=== PATIENT | female | born 1985 | race Caucasian/White ===

== ENCOUNTER → 2018-11-23 | Day surgery (SDC) | payer OTHER ==
[~2018-11-23] MED LIST: ALEVE220 MG PO; HYDROCODON-ACE1 EAC7 PO
--- NOTE | ~2018-11-23 | OP ---
[address] [address] OPERATIVE REPORT Name: LO JHAVERI Room: [facility].#: [id number] Admission: 11/23/18 Attend Phys: Teressa Rankin DO Discharge: Date of : 83 Report #: [id number] THIS REPORT FOR: //name// CC: Teressa Calzada On behalf of Dr. Teressa Rankin DO. PREOPERATIVE DIAGNOSES: Chronic cholecystitis with cholelithiasis and dilated common bile duct. POSTOPERATIVE DIAGNOSES: Chronic cholecystitis with cholelithiasis and dilated common bile duct. SURGEON: Teressa Rankin DO. CO-SURGEON: Edwin, PGY-1. TUNA PURSE SEINER: Hugo, PGY2. OPERATION PERFORMED: Laparoscopic cholecystectomy with IOC and surgeon interpretation of images. ANESTHESIA: General and local. ESTIMATED BLOOD LOSS: 2. SPECIMEN REMOVED: Gallbladder. COMPLICATIONS: None. DISPOSITION: Plan to discharge home. HISTORY OF PRESENT ILLNESS: The patient is a 33-year-old female with history of persistent right upper quadrant pain, worse with greasy, fried, fatty foods. She did have an ultrasound that showed cholelithiasis and a slightly dilated common bile duct. However, LFTs upon ED visit were normal. It was determined that she should follow up as an outpatient and the plan for laparoscopic cholecystectomy with intraoperative cholangiogram. Risks and complications were discussed at length, and she agreed to proceed with surgery. DESCRIPTION OF PROCEDURE: After consent was obtained, the patient was taken to the operating room and placed in the supine position. Bilateral SCDs applied to lower extremities. Two grams of Ancef were given for surgical prophylaxis. A safety belt was placed across the patient's waist. [place] [address] OPERATIVE REPORT Name: LO JHAVERI Room: [facility]#: [id number] Admission: 11/23/18 Attend Phys: Teressa Rankin DO Discharge: Date of : 83 Report #: [id number] without any complication. The patient was then prepped and draped in the standard sterile fashion. Time-out performed to confirm the patient and procedure. Transverse incision was made just above the umbilicus using 11 blade scalpel. S retractors were used to dissect down to the level of the fascia. Fascia was grasped between 2 Kochers, elevated, fascia was scored. A hemostat was used to bluntly enter the peritoneum. Finger sweep was performed to ensure no intra-abdominal adhesions. Two stitches of 0 Vicryl were placed on either side of the fascia. A 10 mm Oscar trocar was inserted and without complication. Insufflation was initiated. Camera was inserted in the abdomen. Intra-abdominal contents were inspected. The patient was placed in reverse Trendelenburg and turned to the left. A second trocar was placed subxiphoid under direct visualization. Two 5 mm trocars were placed in right upper quadrant under direct visualization. The gallbladder was elevated. Adhesions were seen touching the gallbladder. These were taken down with hook electrocautery. Electrocautery was used to release adhesions and fibrinous tissue from around the suspected cystic duct. [place] dissector was used to bluntly dissect around the cystic duct and once the structure was isolated, easily seeing the gallbladder, there was an artery just anterior medial to the cystic duct. This was also isolated easily with electrocautery and [place] dissector. Critical view of safety was obtained. Due to the proximity of the artery and duct, the artery was clipped and cut allowing good visualization of the duct. Gardiner clamp was placed across the Brody pouch. Catheter was inserted into the cystic duct. Bile return was immediately seen. This was flushed. This time cholangiogram was obtained. There was no evidence of stone or stricture within the common bile duct, all structures could be seen easily. Contrast was easily seen to flow into the duodenum. Total fluoroscopy time was 10 seconds. At this time, the Gardiner clamp was removed and gallbladder was again elevated. Attention was turned to clipping the duct and cutting it and a hook electrocautery was used to dissect the gallbladder off the liver. The gallbladder was placed in laparoscopic EndoCatch bag. The gallbladder fossa was then copiously irrigated and all fluid was suctioned out. Hemostasis was completely assured before insufflation was let down, and all trocars were removed under direct visualization. Once there was no evidence of bleeding from the trocar sites, all ports were completely removed. Supraumbilical fascia was closed with a stitch of 0 Vicryl in a [id number] fashion, 3-0 Vicryl was used to close subcutaneous tissue and all skin incisions were closed with 4-0 Monocryl. Sterile dressings were applied over top. The patient was awakened from anesthesia and transferred to PACU in stable condition. All counts were correct at the end of the case. By: [id number] Arias DO /nt
[2018-11-23 08:21] LABS: HEMATOCRIT 38.9 % (37.0-47.0)
== END | disposition home or self-care (01) ==
LOC: M.SUR 07:35
PROVIDERS: Surgery
DX: K80.10 Calculus of gallbladder with chronic cholecystitis without obstruction (principal); K83.8 Other specified diseases of biliary tract